=== PATIENT | male | born 1985 ===

== ENCOUNTER 2019-01-31 21:25 | Emergency (ER) | payer SELFPAY ==
[2019-01-31] MEDS ORDERED: MORPHINE IV ONE (23:26)
[2019-01-31] MEDS ORDERED: TORADOL IV ONE (23:26)
[2019-01-31] MEDS ORDERED: XYLOCAINE 1% 20 mL INFILTRATI ONE (23:26)
--- NOTE | 2019-01-31 23:26 | XRay Report ---
LEFT SHOULDER 3 VIEWS. INDICATION / CLINICAL INFORMATION: MAIN: left shoulder pain dislocation denies injury COMPARISON: None available. FINDINGS: BONES / JOINT(S): Left subcortical or dislocation. No significant arthritis. SOFT TISSUES: No significant abnormality. ADDITIONAL FINDINGS: None. Signer Name: George Hernandez MD Signed: 01/31/2019 11:22 PM Workstation Name: [id number]
[2019-01-31 23:48] VITALS: BP 155/107
--- NOTE | 2019-02-01 00:44 | Emergency Department Report ---
ED Extremity Problem HPI - General Chief complaint: Extremity Injury, Upper Stated complaint: LEFT SHOULDER PAIN Time Seen by Provider: 01/31/19 23:25 Source: patient Mode of arrival: Ambulatory Limitations: No Limitations - History of Present Illness Initial comments: Patient is a 33-year-old male who suffered a shoulder dislocation while playing soccer earlier today. Patient tried to reduce the shoulder himself with a friend but was unsuccessful. Patient's had 2 previous shoulder dislocations in the past. Patient states pain is a 10 out of 10 which is worse with movement better with rest. His aching throbbing pain to left shoulder. Patient denies any other injury at this time. Severity scale (0 -10): 8 - Related Data Previous Rx's Medication Instructions Recorded Last Taken Type Ibuprofen [Motrin 800 MG tab] 800 mg PO Q8HR PRN #10 tablet 02/01/19 Unknown Rx methOCARBAMOL [Robaxin TAB] 500 mg PO Q6H PRN #14 tablet 02/01/19 Unknown Rx traMADol [Ultram] 50 mg PO Q6HR PRN #12 tablet 02/01/19 Unknown Rx Allergies Allergy/AdvReac Type Severity Reaction Status Date / Time No Known Allergies Allergy Unverified 01/31/19 21:32 ED Review of Systems ROS: Stated complaint: LEFT SHOULDER PAIN Other details as noted in HPI Comment: All other systems reviewed and negative ED Past Medical Hx - Past Medical History Previous Medical History?: No - Surgical History Past Surgical History?: No - Social History Smoking Status: Never Smoker Substance Use Type: None - Medications Home Medications: Home Medications Medication Instructions Recorded Confirmed Last Taken Type Ibuprofen [Motrin 800 MG tab] 800 mg PO Q8HR PRN #10 tablet 02/01/19 Unknown Rx methOCARBAMOL [Robaxin TAB] 500 mg PO Q6H PRN #14 tablet 02/01/19 Unknown Rx traMADol [Ultram] 50 mg PO Q6HR PRN #12 tablet 02/01/19 Unknown Rx ED Physical Exam - General Limitations: Language Barrier General appearance: alert, in no apparent distress - Head Head exam: Present: atraumatic, normocephalic - Eye Eye exam: Present: normal appearance - ENT ENT exam: Present: mucous membranes moist - Neck Neck exam: Present: normal inspection - Respiratory Respiratory exam: Absent: respiratory distress - GI/Abdominal GI/Abdominal exam: Present: soft. Absent: distended - Rectal Rectal exam: Present: deferred - Extremities Exam Extremities exam: Present: normal inspection - Expanded Upper Extremity Exam Left Shoulder Exam: Present: tenderness, deformity (deltoid). Absent: full ROM, swelling - Back Exam Back exam: Present: normal inspection - Neurological Exam Neurological exam: Present: alert, oriented X3 - Psychiatric Psychiatric exam: Present: normal affect, normal mood - Skin Skin exam: Present: warm, dry, intact, normal color. Absent: rash ED Course Vital Signs 01/31/19 01/31/19 01/31/19 22:21 23:30 23:40 Temperature 98.1 F 98.5 F Pulse Rate 94 H 80 Respiratory 16 16 18 Rate Blood Pressure 161/82 Blood Pressure 155/107 [Right] O2 Sat by Pulse 98 96 Oximetry 01/31/19 02/01/19 02/01/19 23:45 00:00 00:15 Temperature Pulse Rate 68 Respiratory 16 12 16 Rate Blood Pressure 155/107 Blood Pressure [Right] O2 Sat by Pulse 97 Oximetry - Orthopedic Joint Reduction Joint #1 Consent Obtained: verbal consent Time Out Performed: Yes Side: left Joint Reduction Location: shoulder Analgesia: other (10ml of lidocaine placed within joint ) Shoulder Technique Used (if applicable): [facility] Post Reduction X-Ray Obtained: Yes Post Reduction X-Ray Results: reduced Splint Applied: Yes Patient Tolerated Procedure: well ED Medical Decision Making - Radiology Data X-ray of the left shoulder shows a anterior dislocation. Critical care attestation.: If time is entered above; I have spent that time in minutes in the direct care of this critically ill patient, excluding procedure time. ED Disposition Clinical Impression: Shoulder dislocation Qualifiers: Encounter type: initial encounter Laterality: left Qualified Code(s): S43.005A - Unspecified dislocation of left shoulder joint, initial encounter Disposition: - TO HOME OR SELFCARE Is pt being admited?: No Does the pt Need Aspirin: No Condition: Stable Instructions: Shoulder Dislocation (ED) Referrals: MELODY CHAPA MD [Staff Physician] - 3-5 Days Time of Disposition: 00:45 Print Language: EMIRATI
--- NOTE | 2019-02-01 00:56 | XRay Report ---
LEFT SHOULDER ONE VIEW. INDICATION / CLINICAL INFORMATION: post reduction film COMPARISON: None available. FINDINGS: BONES / JOINT(S): Satisfactory reduction at the glenohumeral joint. No bony injury identified. No sig nificant arthritis. SOFT TISSUES: No significant abnormality. ADDITIONAL FINDINGS: None. Signer Name: George Hernandez MD Signed: 02/01/2019 12:52 AM Workstation Name: [id number]
== END 2019-02-01 01:06 | disposition home or self-care (01) ==
LOC: ED 21:25
DX: S43.005A Unspecified dislocation of left shoulder joint, initial encounter (principal); X58.XXXA Exposure to other specified factors, initial encounter; Y93.66 Activity, soccer; Y92.89 Other specified places as the place of occurrence of the external cause; Y99.8 Other external cause status
CPT/HCPCS: 23650; 73020; 73030; J1885; J2270; 96374; 96375